=== PATIENT | female | born 1970 | race Caucasian/White ===

== ENCOUNTER 2016-11-25 15:59 | Emergency (ER) | payer OTHER ==
[~2016-11-25] VITALS: Ht 167.6 cm; Wt 79.4 kg
[2016-11-25] MEDS ORDERED: XANAX0.5 M1 PO ×2 (17:50→17:53)
[2016-11-25] MEDS ORDERED: REXULTI2 M1 PO (17:50)
[2016-11-25] MEDS ORDERED: PROZAC40 M1 PO (17:50)
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
[2016-11-25 17:58] VITALS: BP 124/70
== END 2016-11-25 17:59 ==
LOC: ERH 15:59
DX: Z76.0 Encounter for issue of repeat prescription (principal)
CPT/HCPCS: 99281